=== PATIENT | male | born 2000 | race African-American/Black ===

== ENCOUNTER 2023-08-13 14:10 | Emergency (ER) | payer SELFPAY ==
[2023-08-13 14:11] VITALS: BP 124/80; PULSE 86; RESP 21; TEMP 36.9; O2SAT 98; BMI 21.2
--- NOTE | 2023-08-13 14:12 | ECG_ITS ---
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 Measurements Intervals [place] Rate: 83 P: 71 [place]: 144 QRS: 76 QRSD: 92 T: 65 QT: 348 QTc: 410 Interpretive Statements SINUS RHYTHM EARLY REPOLARIZATION [ST ELEVATION WITH NORMALLY INFLECTED T-WAVE] No previous ECG available for comparison Electronically Signed On 08-13-2023 21:57:29 CDT by Jeannette Anguiano M.D. [id number]
[2023-08-13 14:20] VITALS: BP 124/80; PULSE 86; O2SAT 99
--- NOTE | 2023-08-13 14:21 | ED_ITS ---
HPI - Chest Pain 2 General: Chief Complaint: Chest Pain Stated Complaint: Chest Pain Time Seen by Provider: 08/13/23 14:10 History of Present Illness: 22-year-old -Maced[place] male with a history of seizure disorder who presents to the emergency room by ambulance with chest pain. He said about an hour ago he developed central chest pain. He describes it as sharp pain. Nitropaste was placed on the patient by EMS. He still has some pain on presentation but he says it is quite a bit better. No cough. No shortness of breath. No lower extremity swelling. No abdominal pain. No nausea or vomiting. No diaphoresis. Review of Systems 2 Narrative: Constitutional symptoms: Negative except as documented in HPI. Skin symptoms: Negative except as documented in HPI. Eye symptoms: Negative except as documented in HPI. ENMT symptoms: Negative except as documented in HPI. Respiratory symptoms: Negative except as documented in HPI. Cardiovascular symptoms: Negative except as documented in HPI. Gastrointestinal symptoms: Negative except as documented in HPI. Genitourinary symptoms: Negative except as documented in HPI. Musculoskeletal symptoms: Negative except as documented in HPI. Neurologic symptoms: Negative except as documented in HPI. Psychiatric symptoms: Negative except as documented in HPI. Endocrine symptoms: Negative except as documented in HPI. Physical Exam 2 Narrative: EXAM NARRATIVE: General: Alert, no acute distress. Skin: Warm, dry. Head: Normocephalic, atraumatic. Neck: Supple, trachea midline. Eye: Extraocular movements are intact. Ears, nose, mouth and throat: mucosa moist. Cardiovascular: Regular, Normal peripheral perfusion. Respiratory: Lungs are clear to auscultation, respirations are non-labored, breath sounds are equal, Symmetrical chest wall expansion. Gastrointestinal: Soft, Nontender, Non distended Musculoskeletal: Normal ROM, no deformity. Neurological: Alert and oriented, No focal neurological deficit observed. Psychiatric: Cooperative, appropriate mood & affect. Course 2 Vital Signs: Vital signs: Vital Signs Temperature 98.5 F 08/13/23 14:11 Pulse Rate 86 08/13/23 14:20 Respiratory Rate 21 H 08/13/23 14:11 Blood Pressure 124/80 08/13/23 14:20 Pulse Oximetry 99 08/13/23 14:20 Oxygen Delivery Me thod Room Air 08/13/23 14:20 MDM - Chest Pain Medical Decision Making Differential diagnosis for patient with chest pain includes but is not limited to and based on the above HPI, review of systems and physical exam: Pneumonia. unstable angina. angina. Acute coronary syndrome / DC. Pulmonary embolism. Costochondritis / musculoskeletal. Pleurisy. Pericarditis. Esophageal spasm. Pancreatis. Cholecystitis. Orders placed to evaluate differential diagnosis based on the above differential, HPI and physical exam EKG: Time 1412. Rate 83. Early repolarization. Normal sinus rhythm, No ST-T changes, no ectopy, normal MO & QRS intervals, This was reviewed and interpreted by myself the ER physician at 1416. Lab Review: Laboratory results were reviewed and interpreted by myself the emergency room physician. Lab work is mostly normal no leukocytosis. No anemia. No renal failure. Glucose is appropriate. Lipase is slightly elevated at 240. However he has had absolutely no nausea. He has no tenderness to palpation with deep palpation of his epigastrium and right upper quadrant. I reviewed the patient's medical record. Reexamination: Patient says his pain feels much better now. He is ready to go home. No increased work of breathing. No altered mental status. No changes on cardiac monitoring. Assessment and plan: Noncardiac chest pain - Discharged home - Discussed plan with patient. Answered any questions. - Evaluation and treatment of this problem were appropriate in the emergency setting. Lab Data 08/13/23 14:25 08/13/23 14:25 Laboratory Results WBC 5.58 10^3/uL (3.29-11.43) 08/13/23 14:25 RBC 4.12 10^6/uL (3.85-5.65) 08/13/23 14:25 Hgb 12.90 g/dL (11.27-16.99) 08/13/23 14:25 Hct 39.0 % (37-53) 08/13/23 14:25 MCV 94.7 fl (82-101) 08/13/23 14:25 MCH 31.3 pg (27-33) 08/13/23 14:25 MCHC 33.1 g/dL (30-55) 08/13/23 14:25 RDW 14.8 % (12.1-15.1) 08/13/23 14:25 Plt Count 226 10^3/cmm (157-399) 08/13/23 14:25 MPV 9.9 fL (7.4-10.4) 08/13/23 14:25 Neut % (Auto) 39.4 % 08/13/23 14:25 Lymph % (Auto) 47.7 % 08/13/23 14:25 [place] % (Auto) 6.1 % 08/13/23 14:25 Eos % (Auto) 6.1 % 08/13/23 14:25 Baso % (Auto) 0.7 % 08/13/23 14:25 Neut # (Auto) 2.20 10^3/uL (1.8-7.7) 08/13/23 14:25 Lymph # (Auto) 2.7 10^3/uL (0.8-4.8) 08/13/23 14:25 [place] # (Auto) 0.3 10^3/uL (0.2-0.9) 08/13/23 14:25 Eos # (Auto) 0.3 10^3/uL (0.0-0.8) 08/13/23 14:25 Baso # (Auto) 0.0 10^3/uL (0.0-0.1) 08/13/23 14:25 Nucleated RBC % (auto) 0 % 08/13/23 14: Nucleated RBCs # 0.0 /100WBC 08/13/23 14:25 Sodium 138 mmol/L (136-145) 08/13/23 14:25 Potassium 4.3 mmol/L (3.5-5.1) 08/13/23 14:25 Chloride 102 mmol/L (98-107) 08/13/23 14:25 Carbon Dioxide 27 mmol/L (22-29) 08/13/23 14:25 Anion Gap 13.3 (5-19) 08/13/23 14:25 BUN 11 mg/dL (6-20) 08/13/23 14:25 Creatinine 0.7 mg/dL (0.7-1.2) 08/13/23 14:25 GFR Calculation 169.1 mL/min (90-130) H 08/13/23 14:25 Glucose 86 mg/dL (65-115) 08/13/23 14:25 Calculated Osmolality 285 mOsm/kg (285-295) 08/13/23 14:25 Calcium 9.0 mg/dL (8.5-10.5) 08/13/23 14:25 Total Bilirubin 0.3 mg/dL (0.15-1.2) 08/13/23 14:25 AST 23 U/L (0-40) 08/13/23 14:25 ALT 18 U/L (0-41) 08/13/23 14:25 Alkaline Phosphatase 76 U/L (40-130) 08/13/23 14:25 Troponin T Baseline < 6 ng/L (0-15) 08/13/23 14:25 Total Protein 6.6 g/dL (6.6-8.7) 08/13/23 14:25 Albumin 4.1 g/dL (3.5-5.2) 08/13/23 14:25 Globulin 2.5 g/dL (1.3-4.6) 08/13/23 14:25 Lipase 240 U/L (13-60) H 08/13/23 14:25 All radiology interpretation(s) finalized by discharge Discharge Plan Discharge Patient Disposition: Home Clinical Impression: Non-cardiac chest pain Condition: Stable Discharge Orders: Discharge ED (Routine); Ordered 08/13/23 Ordered By: Waleska Monreal Discharge Diet: Advance as tolerated Discharge Activity: Increase activity as tolerated Patient Instructions: Noncardiac Chest Pain (ED) Activity Restrictions/Additional Instructions: Thank you for choosing [facility] for your healthcare needs today. Please realize this is an emergency room and that we are providing you with a medical screening exam and this may not be complete and all inclusive of all the testing and or work up that you may need to determine your ailment or severity of your illness. You have been screened and evaluated and felt safe for discharge. Health conditions do change or evolve sometimes and as such it is important that you follow up with your Primary Doctor to be re checked, 3-5 days is a general good time frame for follow up. You are always welcome to return to the ED for re assessment if your symptoms are worsening or you have new concerns Coding Level of Care Code ED Instructor Military Science for Benita Mandujano
[2023-08-13 14:34] LABS: Basophils % 0.7 %; Eosinophils # 0.3 10^3/uL (0.0-0.8); Eosinophils % 6.1 %; Lymphocytes # 2.7 10^3/uL (0.8-4.8); Lymphocytes % 47.7 %; Mean Corpuscular HGB Conc 33.1 g/dL (30-55); Mean Corpuscular Hemoglobin 31.3 pg (27-33); Mean Corpuscular Volume 94.7 fl (82-101); Mean Platelet Volume 9.9 fL (7.4-10.4); Monocytes # 0.3 10^3/uL (0.2-0.9); Monocytes % 6.1 %; Neutrophils % 39.4 %; Nucleated Red Blood Cells % 0 %; Platelet Count 226 10^3/cmm (157-399); Red Blood Count 4.12 10^6/uL (3.85-5.65); Red Cell Distribution Width 14.8 % (12.1-15.1); White Blood Count 5.58 10^3/uL (3.29-11.43)
[2023-08-13 14:53] LABS: Alanine Aminotransferase 18 U/L (0-41); Albumin Level 4.1 g/dL (3.5-5.2); Alkaline Phosphatase 76 U/L (40-130); Anion Gap 13.3 (5-19); Aspartate Amino Transferase 23 U/L (0-40); Blood Urea Nitrogen 11 mg/dL (6-20); Carbon Dioxide 27 mmol/L (22-29); Chloride 102 mmol/L (98-107); Creatinine Clr Calc Pharmacy 189.2995; Globulin 2.5 g/dL (1.3-4.6); Glomerular Filtration Rate 169.1 mL/min (90-130); Glucose 86 mg/dL (65-115); Lipase 240 U/L (13-60); Osmolality Calculated 285 mOsm/kg (285-295); Potassium 4.3 mmol/L (3.5-5.1); Sodium 138 mmol/L (136-145); Total Bilirubin 0.3 mg/dL (0.15-1.2); Total Protein 6.6 g/dL (6.6-8.7)
[2023-08-13 14:58] LABS: Troponin(5th) Baseline < 6 ng/L (0-15)
[2023-08-13 16:00] VITALS: BP 124/80; PULSE 86; RESP 21; TEMP 36.9; O2SAT 99
[2023-08-13 16:34] LABS: Troponin 5 2HR 11.12 ng/L (0-15); Troponin 5 2HR Delta 5.12001 ABS# (0-10)
== END 2023-08-13 16:02 | disposition home or self-care (01) ==
PROVIDERS: Emergency Provider Emergency Medicine
DX: R07.89 Other chest pain (principal)
CPT/HCPCS: 36415; 80053; 83690; 84484; 85025; 93005; 99284

== ENCOUNTER 2024-06-10 07:51 | Emergency (ER) | payer SELFPAY ==
--- NOTE | 2024-06-10 07:54 | ECG_ITS ---
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 Measurements Intervals [place] Rate: 77 P: 67 NE: 148 QRS: 71 QRSD: 91 T: 60 QT: 351 QTc: 397 Interpretive Statements SINUS RHYTHM Compared to ECG 08/13/2023 14:12:17 Early repolarization no longer present Electronically Signed On 06-15-2024 10:16:21 CDT by Johnathon Andrews M.D. [email or web address]
--- NOTE | 2024-06-10 07:54 | XR_ITS ---
WS: [id number] Portable AP upright chest, 06/10/2024 Clinical Data: dyspnea/cough Comparison: None. Findings: No nodules, masses or effusions are seen. The heart is normal. The pulmonary vascularity is not increased. No pneumonia or pneumothorax is seen. There are monitor leads on the chest wall. XR/XR chest 1V portable [id number] Impression: Negative chest.
[2024-06-10 07:55] VITALS: BP 145/78; PULSE 75; RESP 16; TEMP 36.7; O2SAT 95; BMI 26.6
--- NOTE | 2024-06-10 07:56 | W.ED.CHESTPA ---
HPI - Chest Pain General: Chief Complaint: Chest Pain Stated Complaint: chest pain Time Seen by Provider: 06/10/24 07:54 History of Present Illness: 24-year-old male presents to the ED with about 12 hours of chest pain. He reports that it began last night while he was trying to go to bed as a tingling that moved across his chest and now it is a constant pressure like someone is sitting on it. He denies radiation. He does report associated palpitations and intermittent nausea. He denies any dyspnea, edema, fever or chills. He denies any exacerbating factors. He does have a history of seizures, last one was reportedly 4 months ago. Associated symptoms: Reports palpitations; Deny abdominal pain, dyspnea, fever(s) or syncope Related Data Home Medications ?Medication ?Instructions ?Recorded ?Confirmed levetiracetam 500 mg 500 mg PO BID 06/10/24 06/10/24 tablet,extended release 24 hr Previous Rx's ?Medication ?Instructions ?Recorded pantoprazole 40 mg tablet,delayed 40 mg PO DAILY #30 tabs 06/10/24 release (Protonix) Allergies Allergy/AdvReac Type Severity Reaction Status Date / Time bees Allergy ALGY-Swell Uncoded 06/10/24 08:06 Lip/Tongue/Throat Review of Systems Const: Denies: fever(s) or chills Card: Reports: chest pain and palpitations; Denies: lightheadedness or syncope Resp: Denies: dyspnea GI: Denies: abdominal pain : Denies: dysuria, urinary frequency or urinary urgency Musc: Denies: neck pain or back pain Skin/Breast: Denies: rash [facility] ED PFSH: Medical History Psychiatric care Physical Exam Const: GENERAL APPEARANCE: cooperative ORIENTATION/CONSCIOUSNESS: Yes awake, Yes oriented to person, Yes oriented to place and Yes oriented to time HENMT: COMMON NORMALS: normocephalic, atraumatic and hearing grossly normal bilaterally HEAD & SCALP: normocephalic and atraumatic Resp: COMMON NORMALS: normal respiratory effort, No retractions, No use of accessory muscles and clear to auscultation bilaterally AUSCULTATION: clear to auscultation bilaterally Cardio: COMMON NORMALS: regular rate, regular rhythm and No murmurs present (Cardio) RATE: regular rate RHYTHM: regular rhythm GI: COMMON NORMALS: Soft to palpation and No hepatosplenomegaly present AUSCULTATION: Yes normoactive bowel sounds PALPATION: Yes Soft to palpation, No Tenderness to palpation present (GI), No Guarding due to palpation present (GI) and Yes No hepatosplenomegaly present Extremity: COMMON NORMALS: normal to inspection, capillary refill normal, no clubbing, cyanosis or edema, no calf tenderness and no pedal edema Neuro: SENSORIUM/ORIENTATION: Yes oriented to person, Yes oriented to place and Yes oriented to time Skin: COMMON NORMALS: no rashes or lesions noted GENERAL SKIN EXAM: no rashes or lesions noted Course Vital Signs: Vital signs: Vital Signs Temperature 98.1 F 06/10/24 07:55 Pulse Rate 65 06/10/24 09:56 Respiratory Rate 16 06/10/24 07:55 Blood Pressure 123/76 06/10/24 09:56 Pulse Oximetry 98 06/10/24 09:56 Oxygen Delivery Me thod Room Air 06/10/24 07:55 MDM - Chest Pain Medical Decision Making Symptoms resolved after GI cocktail. Troponin negative EKG does not show any acute changes. Discharge patient home started on Protonix 40 mg daily. Patient also given diet instruction for reflux and dyspepsia follow-up with primary care Differential Diagnosis Likely acute massive pulmonary embolism (Pneumonia reflux aortic aneurysm pneumothorax acute coronary syndrome) and acute myocardial infarction Medical Records I reviewed the patient's medical records. Lab Data I reviewed the patient's lab results. 06/10/24 08:09 06/10/24 08:09 Radiology Impressions Chest X-Ray 06/10/24 07:54 Impression: Negative chest. Laboratory Results WBC 4.85 10^3/uL (3.29-11.43) 06/10/24 08:09 RBC 4.56 10^6/uL (3.85-5.65) 06/10/24 08:09 Hgb 14.10 g/dL (11.27-16.99) 06/10/24 08:09 Hct 43.3 % (37-53) 06/10/24 08:09 MCV 95.0 fl (82-101) 06/10/24 08:09 MCH 30.9 pg (27-33) 06/10/24 08:09 MCHC 32.6 g/dL (30-55) 06/10/24 08:09 RDW 13.2 % (12.1-15.1) 06/10/24 08:09 Plt Count 196 10^3/cmm (157-399) 06/10/24 08:09 MPV 10.3 fL (7.4-10.4) 06/10/24 08:09 Neut % (Auto) 37.7 % 06/10/24 08:09 Lymph % (Auto) 43.1 % 06/10/24 08:09 [place] % (Auto) 8.5 % 06/10/24 08:09 Eos % (Auto) 10.1 % 06/10/24 08:09 Baso % (Auto) 0.4 % 06/10/24 08:09 Neut # (Auto) 1.83 10^3/uL (1.8-7.7) 06/10/24 08:09 Lymph # (Auto) 2.1 10^3/uL (0.8-4.8) 06/10/24 08:09 [place] # (Auto) 0.4 10^3/uL (0.2-0.9) 06/10/24 08:09 Eos # (Auto) 0.5 10^3/uL (0.0-0.8) 06/10/24 08:09 Baso # (Auto) 0.0 10^3/uL (0.0-0.1) 06/10/24 08:09 Nucleated RBC % (auto) 0 % 06/10/24 08:09 Nucleated RBCs # 0.0 /100WBC 06/10/24 08:09 Sodium 137 mmol/L (136-145) 06/10/24 08:09 Potassium 4.1 mmol/L (3.5-5.1) 06/10/24 08:09 Chloride 104 mmol/L (98-107) 06/10/24 08:09 Carbon Dioxide 24 mmol/L (22-29) 06/10/24 08:09 Anion Gap 13.1 (5-19) 06/10/24 08:09 BUN 14 mg/dL (6-20) 06/10/24 08:09 Creatinine 0.7 mg/dL (0.7-1.2) 06/10/24 08:09 GFR Calculation 167.6 mL/min (90-130) H 06/10/24 08:09 Glucose 107 mg/dL (65-115) 06/10/24 08:09 Calculated Osmolality 285 mOsm/kg (285-295) 06/10/24 08:09 Calcium 9.1 mg/dL (8.5-10.5) 06/10/24 08:09 Total Bilirubin 0.2 mg/dL (0.15-1.2) 06/10/24 08:09 AST 17 U/L (0-40) 06/10/24 08:09 ALT 13 U/L (0-41) 06/10/24 08:09 Alkaline Phosphatase 92 U/L (40-130) 06/10/24 08:09 Troponin T Baseline < 6 ng/L (0-15) 06/10/24 08:09 Total Protein 7.2 g/dL (6.6-8.7) 06/10/24 08:09 Albumin 4.2 g/dL (3.5-5.2) 06/10/24 08:09 Globulin 3.0 g/dL (1.3-4.6) 06/10/24 08:09 All radiology interpretation(s) finalized by discharge Discharge Plan Discharge Patient Disposition: Home Clinical Impression: Chest pain due to gastrointestinal reflux disease Condition: Stable Prescriptions: New pantoprazole [Protonix] 40 mg tablet,delayed release (DR/EC) 40 mg PO DAILY Qty: 30 0RF No Action levetiracetam 500 mg tablet extended release 24 hr 500 mg PO BID Discharge Orders: Discharge ED (Routine); Ordered 06/10/24 Ordered By: Chuy Marcus Discharge Diet: As Directed Patient Instructions: Diet for Stomach Ulcers and Gastritis (ED), GERD (Gastroesophageal Reflux Disease) (ED), Opioid Safety, Pain Management Activity Restrictions/Additional Instructions: Thank you for choosing [facility] for your healthcare needs today. It is very important that you follow up as instructed or that you return to the Emergency Department should you have concerns or if your condition changes or worsens in any way. You are seen in the emergency room with complaints of chest pain your EKG did not show any abnormality your cardiac enzymes were negative. Given that your symptoms resolved with a GI cocktail and you have very few risk factors with a normal EKG suspect this is related to reflux. Will start you on pantoprazole 40 mg once a day follow-up with your primary care doctor Stand Alone Forms: Work/School Release Print Language: Bangladeshi Coding Level of Care Code ED A&P Technician for Benita Mandujano
[2024-06-10 08:14] LABS: Basophils % 0.4 %; Eosinophils # 0.5 10^3/uL (0.0-0.8); Eosinophils % 10.1 %; Hematocrit 43.3 % (37-53); Lymphocytes # 2.1 10^3/uL (0.8-4.8); Lymphocytes % 43.1 %; Mean Corpuscular HGB Conc 32.6 g/dL (30-55); Mean Corpuscular Hemoglobin 30.9 pg (27-33); Mean Platelet Volume 10.3 fL (7.4-10.4); Monocytes # 0.4 10^3/uL (0.2-0.9); Monocytes % 8.5 %; Neutrophils # 1.83 10^3/uL (1.8-7.7); Neutrophils % 37.7 %; Nucleated Red Blood Cells % 0 %; Platelet Count 196 10^3/cmm (157-399); Red Blood Count 4.56 10^6/uL (3.85-5.65); Red Cell Distribution Width 13.2 % (12.1-15.1); White Blood Count 4.85 10^3/uL (3.29-11.43)
--- NOTE | 2024-06-10 08:24 | PC.PHAR ---
Patient states he got his Keppra from the count [facility] the [facility] facility he was at . Patient also states he is suppose to take Seraquel but he has been out for 3 weeks.
[2024-06-10 08:35] LABS: Alanine Aminotransferase 13 U/L (0-41); Albumin Level 4.2 g/dL (3.5-5.2); Alkaline Phosphatase 92 U/L (40-130); Anion Gap 13.1 (5-19); Aspartate Amino Transferase 17 U/L (0-40); Blood Urea Nitrogen 14 mg/dL (6-20); Calcium 9.1 mg/dL (8.5-10.5); Carbon Dioxide 24 mmol/L (22-29); Chloride 104 mmol/L (98-107); Creatinine Clr Calc Pharmacy 200.3734; Glomerular Filtration Rate 167.6 mL/min (90-130); Glucose 107 mg/dL (65-115); Osmolality Calculated 285 mOsm/kg (285-295); Potassium 4.1 mmol/L (3.5-5.1); Sodium 137 mmol/L (136-145); Total Bilirubin 0.2 mg/dL (0.15-1.2); Total Protein 7.2 g/dL (6.6-8.7)
[2024-06-10] MEDS: lidocaine 2% viscous 15 ML, aluminum-mag hydrox-simethicon 30 ML, sucralfate oral liq 1 GM PO (09:12)
[2024-06-10 09:26] LABS: Troponin(5th) Baseline < 6 ng/L (0-15)
[2024-06-10 09:56] VITALS: BP 123/76; PULSE 65; O2SAT 98
== END 2024-06-10 09:59 | disposition home or self-care (01) ==
PROVIDERS: Emergency Provider Family Medicine
DX: R07.9 Chest pain, unspecified (principal); K21.9 Gastro-esophageal reflux disease without esophagitis
CPT/HCPCS: 36415; 71045; 80053; 84484; 85025; 93005; 99285; J9999